=== PATIENT | male | born 1940 | race African-American/Black ===

== ENCOUNTER 2016-10-04 05:59 | Day surgery (SDC) | payer MEDICARE, MEDICAID ==
[~2016-10-04] VITALS: Ht 182.8 cm; Wt 111.8 kg
[~2016-10-04 05:59] MED LIST: ASPI-973 PO; ATOR80TA PO; CHOL10008 PO; CLON0.3T PO; DOXA4TAB2 PO; FENO134C PO; FINA5TAB9 PO; HUMALOG CONTINU006; Lactated Ringer's 1,000 ML IV SCH; METO-272 PO; MULT-1073 PO; OMEP20CA11 PO; OXYB15TA PO; RES30 PO; SODI650T PO; TERA10CA5 PO
[2016-10-04] MEDS ORDERED: Propofol 10,000 mCg/mL 20 mL Inj ONE (06:00)
[2016-10-04] MEDS ORDERED: Ondansetron 2 mg/mL 2 mL Inj ONE (06:00)
[2016-10-04] MEDS ORDERED: CeFAZolin 2 Gm/50 mL D5W IV Premix IV ONE (06:00)
[2016-10-04] MEDS ORDERED: fentaNYL-PF 50 mCg/mL 2 mL Inj ONE (06:00)
[2016-10-04] MEDS ORDERED: CeFAZolin Inj 3 GM in IV Premix IV ONE (06:00)
[2016-10-04] MEDS: 0.9% Sodium Chloride 500 ML IV SCH ×2 (06:00→07:42)
[2016-10-04 06:30] VITALS: BP 130/70; PULSE 56; RESP 18; O2SAT 100
[2016-10-04] MEDS ORDERED: CeFAZolin Inj 2 gm / 50mL D5W IV ONE (07:05)
[2016-10-04] MEDS ORDERED: Lactated Ringer's 1,000 ML IV SCH (07:38)
[2016-10-04] MEDS ORDERED: Lactated Ringer's 500 ML IV PRN (07:38)
--- NOTE | 2016-10-04 07:38 | PCM.HPANE ---
Patient Data Surgeon Admitting Provider: Attending Provider:Jah Saul MD Primary Care Physician:Uyen Sue DO Other Provider:Danette Penaingham Anesthesia Reason for Visit Chronic Renal Failure Ht/WT & BMI Height (Feet): 5 Height (Inches): 11.97 Weight (Kilograms): 111.8 Body Mass Index 33.00 Allergies Coded Allergies: No Known Allergies (Unverified , 06/10/16) Past Anesthesia History Anesthesia History: Denies:: Abnormal Airway, Anesthesia Reactions, Difficult Intubation Diabetes History Hx Diabetes?: Yes (BLOOD SUGAR AT HOME [id number]) Type of Diabetes: Type II Glycemic Control: Insulin Pump Current Bedside Blood Glucose: 89 MRSA MRSA: No Medications Blood Thinner: Aspirin Hypertension Medication: Yes Home Meds Incl Beta Natalie: Yes Date Beta Natalie Taken: Oct 03, 2016 Time Beta Natalie Taken: 2200 Reported Medications Omeprazole 20 Mg Capsule.dr20 Mg PO DAILY Ref 0 10/03/16 Cholecalciferol (Vitamin D3) (Vitamin D3)1,000 Unit Tab.chew1,000 Unit PO DAILY 06/10/16 Terazosin 10 Mg Bagrxyq54 Mg PO HS Ref 0 06/10/16 Temazepam 30 Mg Cap30 Mg PO HS PRN For Insomnia 30 Days Ref 0 06/10/16 Sodium Bicarbonate 650 Mg Waektf160 Mg PO DAILY 06/10/16 Oxybutynin Chloride ER 15 Mg Tab.er.2415 Mg PO DAILY Ref 0 06/10/16 Metoprolol Succinate ER 50 Mg Tab.er.24h50 Mg PO DAILY Ref 0 06/10/16 [humalog U100] No Conflict CheckUnknown Dose [id number] per insulin pump 06/10/16 Finasteride 5 Mg Tablet5 Mg PO DAILY 30 Days Ref 0 06/10/16 Clonidine 0.3 Mg Tablet0.3 Mg PO BID Ref 0 06/10/16 Fenofibrate,Micronized (Fenofibrate)134 Mg Mjjndzh420 Mg PO DAILY Ref 0 06/10/16 Doxazosin (Cardura)4 Mg Tablet4 Mg PO HS Ref 0 06/10/16 Multivits-Min/FA/Lycopene/Lut (Centrum Silver Tablet)1 Each Tablet1 Each PO DAILY 06/10/16 Atorvastatin (Lipitor)80 Mg Gblfwx93 Mg PO DAILY Ref 0 06/10/16 Aspirin 81 Mg Qyzfdw84 Mg PO DAILY Ref 0 06/10/16 History History of ENT Problems?: Yes HEENT History: Positive for:: Cataracts (bilateral ) Denies:: Abnormal Airway Difficult Intubation Dysphagia Glaucoma Hearing Problem Sinus Problem TMJ Teeth Condition: Missing Teeth Hx of Heart Problems?: Yes Cardiovascular History: Positive for:: Hypertension Denies:: AICD Chest Pain Edema Heart Murmur Irregular Heartbeat Pacemaker Rheumatic Fever Valvular Heart Disease (echo 06/2016- ef 55-60%) Hx of Respiratory Problem?: No Respiratory History: Denies:: Asthma COPD Emphysema Oxygen Administration Pneumonia Tuberculosis Use of C-PAP Machine Hx Neurologic Problems?: No Neurological History: Denies:: CVA Dizziness Headaches Multiple Sclerosis Parkinson's Disease Seizures TIA Hx of GI Problems?: Yes Gastrointestinal History: Positive for:: Gastroesphageal Reflux Heartburn Denies:: Cirrhosis Diverticulitis Gall Bladder Disease Gastrointestinal Bleeding Hepatitis Hiatal Hernia Liver Disease Rectal Bleeding Hx of Problems?: Yes Genitourinary History: Denies:: HX of Hemodialysis (fistula creation current admission plan, CKD stage 4) Kidney Stones Urinary Tract Infection Male Hx: Positive for:: Prostate Problems (BPH with LUTS) Testicular Surgery (hx of orchiectomy) Skin History: Positive for:: History Skin Disorders? (hx of borges- scarring abdomen and arms) Hx Musculoskeletal Problems?: No Musculoskeletal History: Positive for:: Back Injury (low back chronic pain) Osteoarthritis (fingers) Denies:: Fibromyalgia Joint Replacement Myasthenia Gravis Rheumatoid Arthritis Hx of Psycho/Social Problems?: No Psycho Social History: Denies:: Anxiety Hx Depression Hx Surgeries?: Yes (hemorrhoid, CTR, orchiectomy, cataract, tonsil) Hx Any Other Health Problems?: Yes Other History: Positive for:: Thyroid Disease (takes meds for parathyroid (Na Bicarb) ) Denies:: Cancer History Blood Transfusions: Positive for:: Accept Blood Products? Denies:: Blood Transfusions Hx Diabetes: Yes (BLOOD SUGAR AT HOME [id number])Bedside Blood Glucose: 89 Hx Alcohol Use: NoHx Substance Use: No Smoking Status: Former Smoker Have You Smoked inLast 12 mo: No Stop/Bang S-Snoring: Do You Snore Loudly: No T-Tired: feel tired, fatigued: Yes O-Obsered: Observed not breath: No P-Blood Pressure: treated: Yes B- Body Mass Index > 35 kg/m2: No A- Age over 50: Yes N- Neck Large Circumference: No G- Gender Male: Yes ADARSH Total Score: 4 ADARSH Risk Assessment: High Risk, =/>3 Yes ADARSH Category 4 OutPt Procedure: Yes Risk Assessment Category Category 1A: Patient has history of documented sleep apnea, and HAS NOT received any narcotic, sedative or anesthesia administration during this stay. Category 1B: Patient has history of documented sleep apnea, and HAS received any narcotic , sedative or anesthesia administration during this stay Category 2: Patient has SUSPECTED Obstructive Sleep Apnea, and HAS received any narcotic , sedative or anesthesia administration during this stay. Category 3: Patient has SUSPECTED Obstructive Sleep Apnea and HAS NOT received narcotic, sedative or anesthesia administration during this stay. Category 4: Outpatient in Procedural Areas with known sleep apnea or who screen positive for High Risk via the STOP/BANG questionnaire. Exam Exam Vital Signs Vital Signs Date Time Temp Pulse Resp B/P Pulse Ox O2 Delivery O2 Flow Rate FiO2 10/04/16 06:30 36.3 56 18 130/70 100 Room Air General Appearance: Alert, Oriented X3, Cooperative, No Acute Distress HEENT/AIRWAY: MP 2 Lungs: Clear to Auscultation, Normal Air Movement Heart: Exam Unremarkable, Regular Rate/Rhythm, No Murmurs/Rubs/Gallops Meds/Labs/Diagnostics Admission Meds Current Medications Sodium Chloride (Normal Saline) 500 ml @ 10 mls/hr Q24H IV Last administered on 10/04/16t 06:00; Start 10/04/16 at 05:00; Stop 10/06/16 at 06:59 Bedside Blood Glucose: 89 Plan Impression Patient chart reviewed, patient interviewed and anesthestic plan with risks, benefits, and alternatives discussed, and informed consent obtained. NPO Status: 9PM ASA Physical Status: ASA3 Severe Disease Anesthetic Plan: GA, MAC Bene/Risks/Altern/Consents: Yes HP Complete Prior to Induction: Yes Sesar Calderón MD Oct 04, 2016 07:37
[2016-10-04] MEDS ORDERED: HYDROmorphone 1 mg/mL Inj IVPUSH PRN (07:40)
[2016-10-04] MEDS ORDERED: Phenylephrine 10,000 mCg/mL Inj IVPUSH PRN (07:40)
[2016-10-04] MEDS ORDERED: EPHEDrine Sulfate 50 mg/mL Inj IVPUSH PRN (07:40)
[2016-10-04] MEDS ORDERED: Dexamethasone 4 mg/mL Inj IVPUSH PRN (07:40)
[2016-10-04] MEDS ORDERED: Ondansetron 2 mg/mL 2 mL Inj IVPUSH PRN (07:40)
[2016-10-04] MEDS ORDERED: MetoCLOpramide 5 mg/mL 2 mL Inj IVPUSH PRN (07:40)
[2016-10-04] MEDS ORDERED: fentaNYL-PF 50 mCg/mL 2 mL Inj IVPUSH PRN (07:40)
[2016-10-04] MEDS ORDERED: Bupivacaine-MPF 0.5% 30 mL Inj INFILTRATE ONE (07:41)
[2016-10-04 10:10] VITALS: BP 128/74; PULSE 49; RESP 16; O2SAT 100
[2016-10-04] MEDS ORDERED: HYDROcodone-APAP 5-325 mg Tablet PO PRN (10:25)
--- NOTE | 2016-10-04 11:05 | OP ---
[address] [address] OPERATIVE REPORT PATIENT: TIERRA PRADO : 1940 MR#: [id number] ADMIT: 10/04/2016 JOB ID: [id number] DATE OF SURGERY: 10/04/2016 PREOPERATIVE DIAGNOSIS(ES): Stage 4 chronic renal failure. POSTOPERATIVE DIAGNOSIS(ES): Stage 4 chronic renal failure. PROCEDURE: Left brachiocephalic arteriovenous fistula. SURGEON: Jah Saul MD. SHIPPING AND RECEIVING COORDINATOR: Nima Mcfarlane MD INDICATIONS: A 76-year-old man who has stage 4 chronic renal failure. He has tried a previous left radiocephalic fistula that thrombosed and, now after discussing options with the patient, it was elected to proceed with a left brachiocephalic fistula. Because of family health issues with a daughter dying of a malignancy in [place], a son getting a serious malignancy in [facility], and now his developing a malignancy, he was delayed in returning for his operation. FINDINGS: At the conclusion of the procedure, he had a nicely dilating left upper arm cephalic vein. He had an excellent thrill and a three component Doppler signal in his ulnar artery to his hand. DESCRIPTION OF PROCEDURE: At the beginning and end of the operation, the SCOAP checklist was completed. He received sedation by Dr. Sesar Calderón. Using ChloraPrep, his left upper extremity was prepped and draped in the usual fashion. He received 0.5% lidocaine and 1% lidocaine for local anesthesia. A transverse antecubital incision was made. Dissection was carried down to the cephalic vein which was exposed with sharp dissection down to its junction with the basilic branch of the median cubital vein. The aponeurosis over the artery was opened and the brachial artery was identified and exposed, controlled proximally and distally with vessel loops, and two small posterior branches were clipped. The vein was then divided right at its junction with the basilic branch. The vein was tied with 3-0 silk, sharply divided and flushed with heparinized saline. The artery was occluded, opened longitudinally, flushed proximally and distally with heparinized saline. There was normal inflow and excellent backflow. The anastomosis was then performed with running 6-0 Prolene. [place] through the anastomosis, the vein was flushed with papaverine. After completing the anastomosis, the vein was first backflushed with the venous flow and then the artery was first backflushed into the vein, followed by forward flushing of the vein and then forward flow to the hand with results as stated above. There is no bleeding from the anastomosis. After observing the anastomosis for 5-10 minutes, and there was no bleeding, including with flexion of the elbow, the subcutaneous tissue was closed with running 3-0 Vicryl and the skin with subcuticular 4-0 Vicryl and Dermabond. The estimated blood loss was less than 10 cc. There is no apparent complications. The final sponge, needle, and instrument counts were announced as correct and the patient was returned to the recovery room in stable condition. Critical assistance was provided by Nima Mcfarlane MD.
[2016-10-04 11:22] VITALS: BP 120/58; PULSE 60; RESP 18; O2SAT 100
--- NOTE | 2016-10-04 11:22 | PCM.ANEP1 ---
Post Anesthesia Phase 1 PACU Phase 1 Assessment Vital Signs Vital Signs Date Time Temp Pulse Resp B/P Pulse Ox O2 Delivery O2 Flow Rate FiO2 10/04/16 10:10 37.0 49 16 128/74 100 Nasal Cannula 2 10/04/16 06:30 36.3 56 18 130/70 100 Room Air Anesthetic Administered: MAC Level of Alertness: Awake, talking BUSTOS's with Equal Strength: Yes Pain: No Nausea or Vomiting: No Oxygen Delivery: Nasal Cannula Lungs: Clear to Auscultation, Normal Air Movement Dermatome Level: Full Sensation Sesar Calderón MD Oct 04, 2016 11:22
--- NOTE | 2016-10-04 11:22 | PCM.ANEP2 ---
Post Anesthesia Evaluation ASA/CMS Post Anesthesia VS in Patient's Normal Range?: Yes Resp Stable; Airway Patent?: Yes CV Function & Hydration Stable: Yes Mental Status Recovered?: Yes Pain control Satisfactory?: Yes N/V Control Satisfactory?: Yes Sesar Calderón MD Oct 04, 2016 11:22
[2016-12-14] MEDS ORDERED: NIFE90TA31 PO (18:21)
== END 2016-10-04 23:59 | disposition home or self-care (01) ==
LOC: SAS 05:59
PROVIDERS: ATTEND Surgery
DX: I12.9 Hypertensive chronic kidney disease with stage 1 through stage 4 chronic kidney disease, or unspecified chronic kidney disease (principal); N18.4 Chronic kidney disease, stage 4 (severe); E11.22 Type 2 diabetes mellitus with diabetic chronic kidney disease; M54.5 Low back pain; R00.2 Palpitations; E78.5 Hyperlipidemia, unspecified; K21.9 Gastro-esophageal reflux disease without esophagitis; N40.0 Benign prostatic hyperplasia without lower urinary tract symptoms; Z87.891 Personal history of nicotine dependence; Z79.4 Long term (current) use of insulin; Z79.82 Long term (current) use of aspirin; Z87.442 Personal history of urinary calculi
CPT/HCPCS: 36818; J0690; J2250; J2405; J3010; J7040

== ENCOUNTER 2016-12-15 00:59 | Day surgery (SDC) | payer MEDICARE, MEDICAID ==
[2016-12-15] VITALS (8 sets, daily range): BP systolic 132–190; BP diastolic 69–111; PULSE 59–86; RESP 16–18; O2SAT 99–100
[~2016-12-15] VITALS: Ht 180.3 cm; Wt 108.0 kg
[~2016-12-15 00:59] MED LIST changes: -DOXA4TAB2 PO; -Lactated Ringer's 1,000 ML IV SCH; +NIFE90TA31 PO; -SODI650T PO
[2016-12-15 11:36] LABS: BASOPHILS % (AUTO) 0.2 % (0-3); EOSINOPHILS % (AUTO) 2.9 % (0-5); MONOCYTES % (AUTO) 4.9 % (4-12); Mean Corpuscular Volume 83.5 fL (81-100); NEUTROPHILS % (AUTO) 74.1 % (40-74); Platelet Count 310 bil/L (150-400)
[2016-12-15 11:47] LABS: INR 1.09 ratio
--- NOTE | 2016-12-15 12:18 | NUR ---
[facility] Patient admitted to [facility] bed 6 at 1100 for tunnel cath placement. Denies pain. HL placed and labs drawn. Consent pr . BG 88. Patient put insulin pump on hold. History and medications reviewed. Pre-procedure teaching done and questions answered.
[2016-12-15] MEDS ORDERED: Heparin 10,000 Unit/1,000 mL NS Premix IV ONE (12:59)
[2016-12-15] MEDS ORDERED: CeFAZolin 2 Gm/50 mL D5W Duplex Bag IV ONE (13:07)
[2016-12-15] MEDS ORDERED: Heparin 1,000 Unit/mL 10 mL Inj ONE (13:26)
[2016-12-15] MEDS ORDERED: fentaNYL-PF 50 mCg/mL 2 mL Inj ONE (13:26)
--- NOTE | 2016-12-15 14:59 | DRSVH ---
PROCEDURE: X-RAY CHEST ONE VIEW, PORTABLE ([id number]) INDICATIONS: P/S LINE PLACEMENT TECHNIQUE: One view of the chest was acquired. COMPARISON: [facility], CR, XR CHEST 2VW, 12/07/2016, 16:30. FINDINGS: Surgical changes and devices: Dual lumen dialysis catheter tip projects to the atrial-caval junction. . Lungs and pleura: No pleural effusions or pneumothorax. Lungs are clear. Mediastinum: Mediastinal contours appear normal. Heart size is normal. Bones and chest wall: No suspicious bony lesions. Overlying soft tissues appear unremarkable. IMPRESSION: Status post placement of dual-lumen dialysis catheter. Dictated by: Nevin Ovalles MD, PhD on 12/15/2016 at 14:56 Approved by: Nevin Ovalles MD, PhD on 12/15/2016 at 14:57
--- NOTE | 2016-12-15 15:39 | DRSVH ---
PROCEDURE: CV TUNNEL CATH PLCMNT 1. Sonographic guidance for venous access. 2. Conscious sedation for 8 minutes. 3. Right internal jugular vein tunneled hemodialysis catheter placement. 4. Fluoroscopic guidance for catheter placement. INDICATIONS: ESRD TECHNIQUE: The indications, alternatives, benefits, risks, and complications of the procedure were e xplained to the patient and any family members present. Informed written consent was obtained and pl aced in the chart. The patient was brought to the angiography suite, and conscious sedation was admi nistered intravenously by [facility] staff, while continuous cardiorespiratory monitoring was pe rformed. Maximum sterile barrier technique was employed per standard protocol, including hand hygiene, cap, ma sk, sterile gown and gloves, and 2% chlorhexidine. Sterile ultrasound probe cover was also utilized. 1% lidocaine was used for local anaesthesia. Under sonographic guidance, the right internal jugular vein was accessed with a Micropuncture set. An 0.035J wire was advanced into the vena cava. Subcuta neous tunnel was created within the right anterior chest wall, through which a 14.5 Scottish double lum en tunneled hemodialysis catheter was advanced. Following sequential venotomy tract dilation, the ca theter was advanced through the peel-away sheath and the tip was placed at the cavoatrial junction. Peel-away sheath was removed. Adequate flow was obtained through both lumens of the catheter. The v enotomy was closed with Vicryl, and the catheter was fastened to the skin with Ticron. Both lumens w ere flushed with heparinized saline. The patient tolerated the procedure without difficulty and was in stable condition at the conclusion of the procedure. COMPARISON: None. FINDINGS: The right internal jugular vein is patent by ultrasound. Fluoroscopic imaging demonstrates tip of th e catheter at the cavoatrial junction. IMPRESSION: Right internal jugular vein tunneled hemodialysis catheter placement using sonographic and fluoroscop ic guidance. Dictated by: Caryn Irizarry M.D. on 12/15/2016 at 15:37 Approved by: Caryn Irizarry M.D. on 12/15/2016 at 15:37
--- NOTE | 2016-12-15 19:17 | NUR ---
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 No bleeding or hematoma at right chest tunnel cath site. Patient denies pain. Prior to discharge patient ate lunch, ambulate and void. Discharge instructions reviewed including instructing patient to take his prescribed blood pressure medication, written instructions given and questions answered. Patient home with friend at 1600.
[2016-12-16] MEDS ORDERED: CeFAZolin 2 Gm/50 mL D5W IV Premix IV ONE (06:00)
== END 2016-12-15 23:59 | disposition home or self-care (01) ==
LOC: SOUO 00:59 → EDSTATUS 10:51 → SOUO 23:59
PROVIDERS: ATTEND Radiology Neuroradiology
DX: I12.0 Hypertensive chronic kidney disease with stage 5 chronic kidney disease or end stage renal disease (principal); E11.22 Type 2 diabetes mellitus with diabetic chronic kidney disease; N18.6 End stage renal disease; Q61.2 Polycystic kidney, adult type; K21.9 Gastro-esophageal reflux disease without esophagitis; E78.5 Hyperlipidemia, unspecified; E11.40 Type 2 diabetes mellitus with diabetic neuropathy, unspecified; N40.0 Benign prostatic hyperplasia without lower urinary tract symptoms; N25.0 Renal osteodystrophy; D64.9 Anemia, unspecified; Z86.73 Personal history of transient ischemic attack (TIA), and cerebral infarction without residual deficits; Z79.82 Long term (current) use of aspirin; Z96.41 Presence of insulin pump (external) (internal); Z99.2 Dependence on renal dialysis
CPT/HCPCS: 36415; 36558; 71010; 76937; 77001; 80048; 85025; 85610; 99152; 99153; C1750; C1769; C1887; J1644; J2250; J3010

== ENCOUNTER → 2017-03-20 | Day surgery (SDC) | payer MEDICARE, MEDICAID ==
[~2017-03-20] VITALS: Ht 180.3 cm; Wt 107.5 kg
[2017-03-20] VITALS (8 sets, daily range): BP systolic 115–146; BP diastolic 66–75; PULSE 44–63; RESP 8–23; O2SAT 94–100
[~2017-03-20] MED LIST changes: +0.9% Sodium Chloride 500 ML IV ONE; +Bupivacaine-MPF 0.5% 30 mL Inj INFILTRATE ONE; +CeFAZolin 2 Gm/50 mL D5W Duplex Bag IV ONE; +CeFAZolin 2 Gm/50 mL D5W IV Premix IV SCH; +Cisatracurium 2,000 mCg/mL 10 mL Inj ONE; +Dexamethasone 4 mg/mL Inj IVPUSH PRN; +EPHEDrine Sulfate 50 mg/mL Inj IVPUSH PRN; +Glycopyrrolate 0.2 MG/ML 1mL Inj ONE; +HepLOK Flush 100 unit/mL 5 mL Inj IVFLUSH ONE; +Labetalol 5 mg/mL 20 mL Inj IV PRN; +Lactated Ringer's 1,000 ML IV SCH; +Lactated Ringer's 500 ML IV PRN; -METO-272 PO; +METO-369 PO; +MetoCLOpramide 5 mg/mL 2 mL Inj IVPUSH PRN; +MetoCLOpramide 5 mg/mL 2 mL Inj ONE; +NOV100I SUBQ; +Neostigmine 1 mg/mL 10 mL Inj ONE; -OXYB15TA PO; +Ondansetron 2 mg/mL 2 mL Inj IVPUSH PRN; +Ondansetron 2 mg/mL 2 mL Inj ONE; +Phenylephrine 10,000 mCg/mL Inj IVPUSH PRN; +Propofol 10,000 mCg/mL 20 mL Inj ONE; +fentaNYL-PF 50 mCg/mL 2 mL Inj IVPUSH PRN; +oxyCODONE-Acetamin 5-325 mg Tablet PO PRN
[2017-03-20 08:43] LABS: Mean Corpuscular Volume 83.1 fL (81-100)
[2017-03-20 08:58] LABS: INR 1.05 ratio
--- NOTE | 2017-03-20 10:12 | PCM.HPANE ---
Patient Data Surgeon Admitting Provider: Attending Provider:Belen Mena MD Primary Care Physician:Camacho Rodriugez Other Provider:Didi Pena Anesthesia Reason for Visit End Stage Renal Failure Ht/WT & BMI Height (Feet): 5 Height (Inches): 11 Weight (Kilograms): 107.5 Body Mass Index 33.00 Allergies Coded Allergies: No Known Allergies (Unverified , 03/17/17) Past Anesthesia History Anesthesia History: Denies:: Abnormal Airway, Anesthesia Reactions, Difficult Intubation, Fam Anesthesia Reaction, Fam Malignant Hypertherm, Malignant Hyperthermia Diabetes History Hx Diabetes?: Yes Type of Diabetes: Type II Glycemic Control: Insulin Pump Current Bedside Blood Glucose: 122 MRSA MRSA: No Medications Blood Thinner: Aspirin Last Dose Blood Thinner: Mar 17, 2017 Hypertension Medication: Yes (Metoprolol, Clonidine) Home Meds Incl Beta Natalie: Yes Date Beta Natalie Taken: Mar 19, 2017 Time Beta Natalie Taken: 2229 Reported Medications Insulin Aspart (NovoLOG U100 Insulin Vial)100 Unit/Ml Mdv Units SUBQ continuous #50 03/20/17 Nifedipine ER 90 Mg Tab.er.2490 Mg PO DAILY Ref 0 12/14/16 Omeprazole 20 Mg Capsule.dr20 Mg PO DAILY Ref 0 10/03/16 Cholecalciferol (Vitamin D3) (Vitamin D3)1,000 Unit Tab.chew1,000 Unit PO DAILY 06/10/16 Terazosin 10 Mg Schbwlk51 Mg PO HS Ref 0 06/10/16 Temazepam 30 Mg Cap30 Mg PO HS PRN For Insomnia 30 Days Ref 0 06/10/16 Metoprolol Succinate ER 50 Mg Tab.er.24h50 Mg PO DAILY Ref 0 06/10/16 Finasteride 5 Mg Tablet5 Mg PO DAILY 30 Days Ref 0 06/10/16 Clonidine 0.3 Mg Tablet0.3 Mg PO BID Ref 0 06/10/16 Fenofibrate,Micronized (Fenofibrate)134 Mg Ztszcph754 Mg PO DAILY Ref 0 06/10/16 Multivits-Min/FA/Lycopene/Lut (Centrum Silver Tablet)1 Each Tablet1 Each PO DAILY 06/10/16 Atorvastatin (Lipitor)80 Mg Isarny10 Mg PO DAILY Ref 0 06/10/16 Aspirin 81 Mg Yaimfc60 Mg PO DAILY Ref 0 06/10/16 Discontinued Reported Medications [humalog U100] No Conflict CheckUnknown Dose [id number] per insulin pump 06/10/16 Oxybutynin Chloride ER 15 Mg Tab.er.2415 Mg PO DAILY Ref 0 06/10/16 History History of ENT Problems?: Yes HEENT History: Positive for:: Cataracts (bilateral ) Denies:: Abnormal Airway Difficult Intubation Dysphagia Glaucoma Hearing Problem Sinus Problem TMJ Denture Type: None Teeth Condition: Within Normal Limits Hx of Heart Problems?: Yes Cardiovascular History: Positive for:: Hypertension Denies:: AICD Cardiac Surgery Chest Pain Congestive Heart Failure Edema Heart Murmur Irregular Heartbeat Pacemaker Rheumatic Fever Valvular Heart Disease (echo 06/2016- ef 55-60%) Hx of Respiratory Problem?: No Respiratory History: Positive for:: Dyspnea Denies:: Asthma COPD Chest Surgery Emphysema Oxygen Administration Pneumonia Pulmonary Embolism Tuberculosis Use of C-PAP Machine Hx Neurologic Problems?: No Neurological History: Denies:: Alzheimer's Disease CVA Dementia Dizziness Headaches Multiple Sclerosis Parkinson's Disease Seizures Hx of GI Problems?: Yes Hx of Problems?: Yes Genitourinary History: Positive for:: HX of Hemodialysis (fistula creation current admission plan, CKD stage 4) Denies:: Kidney Stones Urinary Tract Infection HX of Peritoneal Dialysis: No Male Hx: Positive for:: Prostate Problems (BPH with LUTS) Testicular Surgery (hx of orchiectomy) Skin History: Positive for:: History Skin Disorders? (hx of borges- scarring abdomen and arms) Denies:: Pressure Ulcers Hx Musculoskeletal Problems?: No Musculoskeletal History: Positive for:: Back Injury (low back chronic pain) Musculoskeletal Trauma (hx of CTR, weakness legs (from kidney failure)) Osteoarthritis Denies:: Fibromyalgia Joint Replacement Myasthenia Gravis Hx of Psycho/Social Problems?: No Psycho Social History: Denies:: Anxiety Hx Depression Hx Surgeries?: Yes (hemorrhoid, CTR, orchiectomy, cataract, tonsil) Hx Any Other Health Problems?: Yes Other History: Positive for:: Hospitalization Thyroid Disease (parathyroid) Denies:: Cancer History Blood Transfusions: Positive for:: Accept Blood Products? Denies:: Blood Transfusions Hx Diabetes: YesBedside Blood Glucose: 122 Hx Alcohol Use: NoHx Substance Use: No Smoking Status: Former Smoker Have You Smoked inLast 12 mo: No Stop/Bang Treated for Sleep Apnea?: No Do You Have a CPAP Machine?: No S-Snoring: Do You Snore Loudly: No T-Tired: feel tired, fatigued: No O-Obsered: Observed not breath: No P-Blood Pressure: treated: Yes B- Body Mass Index > 35 kg/m2: No A- Age over 50: Yes N- Neck Large Circumference: No G- Gender Male: Yes ADARSH Total Score: 3 ADARSH Risk Assessment: Low Risk, <3 Yes Risk Assessment Category Category 1A: Patient has history of documented sleep apnea, and HAS NOT received any narcotic, sedative or anesthesia administration during this stay. Category 1B: Patient has history of documented sleep apnea, and HAS received any narcotic , sedative or anesthesia administration during this stay Category 2: Patient has SUSPECTED Obstructive Sleep Apnea, and HAS received any narcotic , sedative or anesthesia administration during this stay. Category 3: Patient has SUSPECTED Obstructive Sleep Apnea and HAS NOT received narcotic, sedative or anesthesia administration during this stay. Category 4: Outpatient in Procedural Areas with known sleep apnea or who screen positive for High Risk via the STOP/BANG questionnaire. Exam Exam Vital Signs Vital Signs Date Time Temp Pulse Resp B/P Pulse Ox O2 Delivery O2 Flow Rate FiO2 03/20/17 07:53 36.3 62 18 115/66 100 Room Air General Appearance: Oriented X3 HEENT/AIRWAY: MP 2 Lungs: Normal Air Movement Heart: Regular Rate/Rhythm Meds/Labs/Diagnostics Admission Meds Current Medications Sodium Chloride (Normal Saline) 500 ml @ ud STK-MED ONCE IV Last administered on 03/20/17t 07:49; Start 03/20/17 at 07:49; Stop 03/20/17 at 07:50; Status DC Bedside Blood Glucose: 122 Labs Test 03/20/17 08:15 03/20/17 08:30 Sodium Level 132mEq/L (134-144) Potassium Level 4.0mEq/L (3.5-5.2) Chloride Level 88mEq/L (97-108) Carbon Dioxide Level 26mmol/L (18-29) Blood Urea Nitrogen 43mg/dL (8-27) Creatinine 6.09mg/dL (0.76-1.27) Estimat Glomerular Filtration Rate 10mL/min (>59) Glucose Level 135mg/dL (60-99) Calcium Level 9.3mg/dL (8.5-10.1) White Blood Count 6.4th/mm3 (3.8-10.1) Red Blood Count 4.14mil/mm3 (4.40-5.80) Hemoglobin 11.6g/dL (13.8-17.2) Hematocrit 34.4% (41.0-50.0) Mean Corpuscular Volume 83.1fL (81-100) Mean Corpuscular Hemoglobin 28.0pg (27.0-35.0) Mean Corpuscular Hemoglobin Concent 33.7% (32.0-37.0) Red Cell Distribution Width 16.4% (12.3-15.4) Platelet Count 269bil/L (150-400) Prothrombin Time 11.2sec (8.1-12.5) Prothromb Time International Ratio 1.05ratio Plan Impression Patient chart reviewed, patient interviewed and anesthestic plan with risks, benefits, and alternatives discussed, and informed consent obtained. ASA Physical Status: ASA4 Life Threatening Anesthetic Plan: GA Bene/Risks/Altern/Consents: Yes HP Complete Prior to Induction: Yes Patrick Estrada MD Mar 20, 2017 10:12
--- NOTE | 2017-03-20 12:26 | PCM.SURGOP ---
Surgical Operative Report Date of Service: Mar 20, 2017 Pre Operative Diagnosis End-stage renal disease Post Operative Diagnosis End-stage renal disease Procedure: Laparoscopic peritoneal dialysis catheter placement Surgeon and Airport Operations Officer: Surgeon: Belen Mena M.D. Assistants: Ayah Natarajan PA-C; Joyce Gu, MS3 An curriculum assistant was necessary for driving the camera. Indication for Procedure This is a 76-year-old man with end-stage renal disease. He was dialyzing through a tunneled hemodialysis catheter. Although he had had creation of 2 arteriovenous fistulas, the second was still maturing, and he desired peritoneal dialysis. Findings: Left-sided peritoneal dialysis catheter placed under laparoscopic view. Procedure Details The patient was brought to the operating room placed in supine position. General anesthesia was induced. A warming blanket and SCDs were placed. Antibiotics were infused. The operative field was prepped and draped in sterile fashion. A pause was performed to confirm the correct patient, procedure, and site. A left upper quadrant veress needle was used for insufflation and a 5 mm Optiview trocar was used to enter the peritoneal cavity. A left-sided peritoneal dialysis catheter was chosen because the patient had an limb infusion pump on the right. The ultimate location of the distal cuff was chosen. The omentum was inspected and found to not draped into the pelvis, and therefore omentopexy was not necessary. A left midabdominal vertical incision was made to dissect down to the anterior rectus fascia. Initially this was 2 cm in length, however, due to the patient's large body habitus, it had to be extended to 4 cm. A spinal needle was inserted through the abdominal wall to the distal cuff site in the left lower quadrant of the abdomen. An 8 mm port was then inserted through the anterior rectus sheath, tunneled inferiorly to the pre-identified location of the distal cuff, and pierced the peritoneum at that more inferior site. A trocar was inserted through the peritoneal dialysis catheter, and these were then inserted through the 8 mm port with the tip positioned between the bladder and loops of small intestine in the pelvis. The trocar was slowly removed and the curl of the catheter was placed in adequate position. The catheter was then slowly withdrawn such that the distal cuff was just outside the peritoneal cavity. The proximal catheter was tunneled through the subcutaneous tissues to an exit site lateral and superior to the anterior rectus sheath exit site. 800 mL of saline were inserted into the catheter, and then the bag was dropped to gravity and 600 mL came out. 10 mL of heparinized saline, 100 units per milliliter was infused into the dialysis catheter. The subcutaneous tissue at the left midabdominal incision site was closed with 3-0 Vicryl stitches. Skin was closed with 4-0 Monocryl stitch. Sterile dressings were placed, including a large sterile dressing covering the entire catheter mechanism. The patient was awakened from general anesthesia and taken to the postoperative care unit in good condition. Complications There were no periprocedural complications identified. Surgical Specimen Removed: No Specimen sent to Pathology: No Anesthetic Plan: GA Grafts, Implants: Implants-See Implant Record Output, Estimated Blood Loss: 5 (ml) Blood Administration during hernandez: No Belen Mena MD Mar 20, 2017 12:26
--- NOTE | 2017-03-20 14:02 | PCM.ANEP1 ---
Post Anesthesia PACU Phase 1 Assessment Vital Signs Vital Signs Date Time Temp Pulse Resp B/P Pulse Ox O2 Delivery O2 Flow Rate FiO2 03/20/17 12:49 63 16 131/67 96 Room Air 03/20/17 12:24 36.1 53 12 132/71 98 Room Air 03/20/17 12:20 56 11 134/75 98 Room Air 03/20/17 12:10 36.8 44 12 120/70 96 Room Air 03/20/17 12:06 45 23 117/66 94 Room Air 03/20/17 12:03 47 10 125/68 99 Room Air 03/20/17 11:55 36.6 47 8 146/74 100 Simple Mask 8 03/20/17 07:53 36.3 62 18 115/66 100 Room Air Anesthetic Administered: GA Level of Alertness: Awake, talking Pain: No Nausea or Vomiting: No CV Function & Hydration Stable: Yes Airway Device: Oralpharangeal Airway Lungs: Normal Air Movement PACU Phase 2 Assessment Patient Instructions Provided: N/A Patrick Estrada MD Mar 20, 2017 14:02
== END | disposition home or self-care (01) ==
LOC: SAS 07:32
PROVIDERS: ATTEND Surgery
DX: N18.6 End stage renal disease (principal); I12.0 Hypertensive chronic kidney disease with stage 5 chronic kidney disease or end stage renal disease; E78.5 Hyperlipidemia, unspecified; E11.40 Type 2 diabetes mellitus with diabetic neuropathy, unspecified; Q61.3 Polycystic kidney, unspecified
CPT/HCPCS: 36415; 49324; 80048; 85027; 85610; 86850; J1642; J2405; J2704; J2710; J2765; J7030

== ENCOUNTER → 2017-03-27 | Day surgery (SDC) | payer MEDICARE, MEDICAID ==
[2017-03-27] VITALS (8 sets, daily range): BP systolic 102–128; BP diastolic 60–88; PULSE 47–54; RESP 14–20; O2SAT 99–100
[~2017-03-27] MED LIST changes: +0.9% Sodium Chloride 50 ML ONE; -0.9% Sodium Chloride 500 ML IV ONE; +23.4% Sodium Chloride Inj 154 MEQ in Dextrose 10% 1,000 ML IV ONE; -Bupivacaine-MPF 0.5% 30 mL Inj INFILTRATE ONE; -CeFAZolin 2 Gm/50 mL D5W Duplex Bag IV ONE; -CeFAZolin 2 Gm/50 mL D5W IV Premix IV SCH; -Cisatracurium 2,000 mCg/mL 10 mL Inj ONE; -Dexamethasone 4 mg/mL Inj IVPUSH PRN; -EPHEDrine Sulfate 50 mg/mL Inj IVPUSH PRN; -Glycopyrrolate 0.2 MG/ML 1mL Inj ONE; -HUMALOG CONTINU006; -HepLOK Flush 100 unit/mL 5 mL Inj IVFLUSH ONE; +Heparin 1,000 Unit/mL 10 mL Inj ONE; +Heparin 10,000 Unit/1,000 mL NS Premix IV ONE; -Labetalol 5 mg/mL 20 mL Inj IV PRN; -Lactated Ringer's 1,000 ML IV SCH; -Lactated Ringer's 500 ML IV PRN; -MetoCLOpramide 5 mg/mL 2 mL Inj IVPUSH PRN; -MetoCLOpramide 5 mg/mL 2 mL Inj ONE; -Neostigmine 1 mg/mL 10 mL Inj ONE; +Nitroglycerin 50,000 mcg/250 mL D5W Premix IV ONE; -Ondansetron 2 mg/mL 2 mL Inj IVPUSH PRN; -Ondansetron 2 mg/mL 2 mL Inj ONE; -Phenylephrine 10,000 mCg/mL Inj IVPUSH PRN; -Propofol 10,000 mCg/mL 20 mL Inj ONE; +Protamine Sulfate 10 mg/mL 5 mL Inj ONE; -fentaNYL-PF 50 mCg/mL 2 mL Inj IVPUSH PRN; +fentaNYL-PF 50 mCg/mL 2 mL Inj ONE; -oxyCODONE-Acetamin 5-325 mg Tablet PO PRN
[2017-03-27 09:19] LABS: BASOPHILS % (AUTO) 0.3 % (0-3); EOSINOPHILS % (AUTO) 5.1 % (0-5); MONOCYTES % (AUTO) 7.2 % (4-12); Mean Corpuscular Hemoglobin 27.6 pg (27.0-35.0); Mean Corpuscular Volume 82.4 fL (81-100); NEUTROPHILS % (AUTO) 65.8 % (40-74); Platelet Count 238 bil/L (150-400)
[2017-03-27 09:32] LABS: INR 1.07 ratio
--- NOTE | 2017-03-27 09:51 | NUR ---
Admission Patient admitted to [facility] pre fistulagram. NPO since 03/26/17, IV started RFA/labs drawn and consent is signed. Blood sugar on admit 87 with Novolog Insulin pump active. Orders received for NS/Dextrose 10% at 100cc/her. Patient is ready for procedure.
--- NOTE | 2017-03-27 10:06 | NUR ---
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
--- NOTE | 2017-03-27 13:35 | NUR ---
Blood Sugar Lunch serving arrived, blood sugar 126. NS/Dextrose 10% discontinued, patient administered humulog bolus via pump of 5units split (3 now 2 spread out of 2.5 hr)
--- NOTE | 2017-03-27 13:44 | DRSVH ---
PROCEDURE: 1. Left upper extremity arteriovenous fistulogram. 2. Angioplasty of peripheral aspect of the venous limb. 3. Conscious sedation x75 minutes. 4. Limited ultrasound of the left upper extremity arteriovenous fistula. INDICATIONS: Malfunctioning arteriovenous fistula. COMPARISON: [facility], [place], [facility], 02/15/2017, 15:06. TECHNIQUE: Informed, written consent from the patient was obtained prior to the procedure. Patient wa s brought to the angiography suite, and conscious sedation was administered intravenously by fdc staff, while continuous cardiorespiratory monitoring was performed. Maximal sterile barrier t echnique, hand hygiene, skin preparation, and sterile ultrasound technique (if ultrasound was utilize d) was followed. A mask, sterile gown, sterile gloves, a large sterile sheet, hand hygiene, and 2% ch lorhexidine or iodine was utilized for skin antisepsis. The left upper extremity prepped and draped s terilely, and the skin and subcutaneous tissues overlying the peripheral aspect of the venous limb we re infused with lidocaine. The venous limb at the level of the mid upper arm was accessed retrograde under sonographic guidance with a micropuncture set. Contrast was injected for arteriovenous fistulog rios. A Glidewire was advanced into the arterial limb with the aid of a 4 Haitian nontapered catheter, through which the Glidewire was exchanged for an 035 J-wire. A 5 Haitian sheath was advanced, through which a 40 mm long balloon was advanced into the venous limb, and was used to angioplasty multifocal regions within the peripheral aspect of the venous limb to 6 mm diameter. 300 mcg nitroglycerin was a dministered into the venous limb. Repeat arteriovenous fistulogram was performed. Intravenous protami ne was administered, the sheath was removed, and pressure was applied for hemostasis. FLUOROSCOPY TIME: 6.8 minutes FINDINGS: The arteriovenous anastomosis is widely patent. Multifocal high-grade stenoses within the p eripheral aspect of the venous limb are present, resolved following 6 mm angioplasty. High-grade spas m within the venous limb at the level of the sheath insertion site is present, resolved following nit roglycerin administration. Filling of the collaterals is significantly decreased at the conclusion of the procedure. IMPRESSION: 1. Multifocal high-grade stenoses within the peripheral aspect of the venous limb, resolved following 6 mm angioplasty. Dictated by: Rhoda Wilson M.D. on 03/27/2017 at 13:36 Approved by: Rhoda Wilson M.D. on 03/27/2017 at 13:42
--- NOTE | 2017-03-27 14:15 | NUR ---
Discharge Recovery complete without complications. Instructions reviewed and provided in writing. 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
== END | disposition home or self-care (01) ==
LOC: SOUO 08:34 → EDSTATUS 08:39 → SOUO 09:06
PROVIDERS: ATTEND Radiology Diagnostic Radiology
DX: T82.858A Stenosis of other vascular prosthetic devices, implants and grafts, initial encounter (principal); Y83.2 Surgical operation with anastomosis, bypass or graft as the cause of abnormal reaction of the patient, or of later complication, without mention of misadventure at the time of the procedure; N18.6 End stage renal disease
CPT/HCPCS: 36415; 36902; 85025; 85610; 99152; 99153; C1725; C1769; C1894; J1644; J2250; J2720; J3010; Q9967